=== PATIENT | female | born 1995 | race Caucasian/White ===

== ENCOUNTER 2018-03-23 12:33 | Emergency (ER) | payer OTHER ==
[2018-03-23 13:27] VITALS: BP 105/57
--- NOTE | 2018-03-23 14:17 | RAD ---
Indication: Left ankle injury. 3 views of left ankle demonstrate soft tissue swelling. There is no fracture or dislocation. No other bone or joint abnormality is identified. IMPRESSION: No fracture of the left ankle is noted.
--- NOTE | 2018-03-23 14:35 | UC ---
Lower Extremity/Ankle HPI - HPI Summary HPI Summary: Patient twisted her left ankle well tumbling with her friends a few days ago. Patient is able to ambulate without difficulty feels and hears some clicking with ambulation - History of Current Complaint Chief Complaint: UCLowerExtremity Stated Complaint: LFT ANKLE INJURY Time Seen by Provider: 03/23/18 13:52 Hx Obtained From: Patient Hx Last Menstrual Period: 02/28/18 ?: No Onset/Duration: Sudden Onset, Lasting Days Severity Initially: Mild Severity Currently: Mild Pain Intensity: 3 Pain Scale Used: 0-10 Numeric Alleviating Factor(s): Rest, Elevation, OTC Meds Able to Bear Weight: Yes - Allergies/Home Medications Allergies/Adverse Reactions: Allergies Allergy/AdvReac Type Severity Reaction Status Date / Time No Known Allergies Allergy Verified 03/23/18 13:27 Home Medications: Home Medications Ibuprofen TAB* [Motrin TAB* 400 MG] 400 mg PO ONCE PRN 03/23/18 [History Confirmed 03/23/18] PMH/Surg Hx/FS Hx/Imm Hx Previously Healthy: Yes - Surgical History Surgical History: None - Family History Known Family History: Positive: None - Social History Occupation: Student Lives: With Family Alcohol Use: Occasionally Substance Use Type: None Smoking Status (MU): Never Smoked Tobacco Review of Systems Constitutional: Negative Skin: Negative Eyes: Negative ENT: Negative Respiratory: Negative Cardiovascular: Negative Gastrointestinal: Negative Genitourinary: Negative Motor: Negative Neurovascular: Negative Musculoskeletal: Arthralgia - Lateral left ankle pain Neurological: Negative Psychological: Negative Is Patient Immunocompromised?: No All Other Systems Reviewed And Are Negative: Yes Physical Exam Triage Information Reviewed: Yes Appearance: Well-Appearing, No Pain Distress, Well-Nourished Vital Signs: Initial Vital Signs Temp 99 F 03/23/18 13:19 Pulse 90 03/23/18 13:19 Resp 20 03/23/18 13:19 BP 105/57 03/23/18 13:19 Pulse Ox 99 03/23/18 13:19 Vital Signs Reviewed: Yes Eye Exam: Normal Eyes: Positive: Conjunctiva Clear ENT Exam: Normal ENT: Positive: Normal ENT inspection, Hearing grossly normal, Pharynx normal. Negative: Trismus, Muffled voice, Hoarse voice, Sinus tenderness Dental Exam: Normal Neck exam: Normal Neck: Positive: Supple, Nontender Respiratory Exam: Normal Respiratory: Positive: Chest non-tender, No respiratory distress, No accessory muscle use Cardiovascular Exam: Normal Cardiovascular: Positive: RRR, Pulses Normal, Brisk Capillary Refill Musculoskeletal Exam: Normal Musculoskeletal: Positive: Strength Intact, ROM Intact, No Edema Neurological Exam: Normal Neurological: Positive: Alert, Muscle Tone Normal Psychological Exam: Normal Skin Exam: Normal Diagnostics - Radiology No standard instances Xray Interpretation: No Acute Changes Radiology Interpretation Completed By: ED Physician, Radiologist Lower Extremity Course/Dx - Course Course Of Treatment: Neri wrap gel splint weight-bearing as tolerated Tylenol ibuprofen for pain follow with orthopedics when necessary - Differential Dx/Diagnosis Provider Diagnoses: Left ankle sprain Discharge - Sign-Out/Discharge Documenting (check all that apply): Discharge/Admit/Transfer - Discharge Plan Condition: Stable Disposition: HOME Patient Education Materials: Ibuprofen (By mouth), Ankle Sprain (DC), Ankle Stirrup Splint (ED), R.I.C.E. Treatment (ED) Referrals: Andrea Minor MD [Medical Doctor] - 5 Days - Billing Disposition and Condition Condition: STABLE Disposition: HOME
== END 2018-03-23 14:47 | disposition home or self-care (01) ==
LOC: UCCORT 12:33
DX: S93.402A Sprain of unspecified ligament of left ankle, initial encounter (principal); X50.0XXA Overexertion from strenuous movement or load, initial encounter; Y93.89 Activity, other specified; Y92.9 Unspecified place or not applicable
CPT/HCPCS: 99202; G0463

== ENCOUNTER 2018-04-05 17:03 | Emergency (ER) | payer OTHER ==
[2018-04-05 18:18] VITALS: BP 108/67
--- NOTE | 2018-04-05 18:37 | UC ---
Throat Pain/Nasal Oc HPI - HPI Summary HPI Summary: 22 yo female with sore throat and swollen glands x 4-5 days denies fever 3 weeks ago ill for 1 1/2 weeks with similar symptoms strep and mono neg - History of Current Complaint Chief Complaint: UCRespiratory Stated Complaint: SORE THROAT, RESPIRATORY Time Seen by Provider: 04/05/18 18:16 Hx Obtained From: Patient Hx Last Menstrual Period: 2 wks Onset/Duration: Sudden Onset Severity: Moderate Pain Intensity: 6 Pain Scale Used: 0-10 Numeric - Allergies/Home Medications Allergies/Adverse Reactions: Allergies Allergy/AdvReac Type Severity Reaction Status Date / Time No Known Allergies Allergy Verified 04/05/18 18:18 Home Medications: Home Medications Multivitamin [Multivitamins] 1 each PO DAILY 04/05/18 [History Confirmed ] PMH/Surg Hx/FS Hx/Imm Hx Previously Healthy: Yes - Surgical History Surgical History: None - Family History Known Family History: Positive: None, Hypertension - Social History Alcohol Use: Occasionally Substance Use Type: None Smoking Status (MU): Never Smoked Tobacco Review of Systems Constitutional: Fatigue Skin: Negative Eyes: Negative ENT: Sore Throat Respiratory: Negative Cardiovascular: Negative Gastrointestinal: Negative Genitourinary: Negative Motor: Negative Neurovascular: Negative Musculoskeletal: Negative Neurological: Negative Psychological: Negative Is Patient Immunocompromised?: No All Other Systems Reviewed And Are Negative: Yes Physical Exam Triage Information Reviewed: Yes Appearance: Well-Appearing, No Pain Distress, Well-Nourished Vital Signs: Initial Vital Signs Temp 101.2 F 04/05/18 18:12 Pulse 97 04/05/18 18:12 Resp 18 04/05/18 18:12 BP 108/67 04/05/18 18:12 Pulse Ox 100 04/05/18 18:12 Vital Signs Reviewed: Yes Eyes: Positive: Conjunctiva Clear ENT: Positive: Pharyngeal erythema, Tonsillar swelling, Tonsillar exudate Neck: Positive: Supple, Nontender, Enlarged Nodes @ - ant and post cervical Respiratory: Positive: Lungs clear, Normal breath sounds, No respiratory distress, No accessory muscle use Cardiovascular: Positive: RRR, No Murmur Abdomen Description: Positive: Nontender, No Organomegaly, Soft. Negative: CVA Tenderness (R), CVA Tenderness (L) Bowel Sounds: Positive: Present Musculoskeletal: Positive: ROM Intact, No Edema Neurological: Positive: Alert Psychological Exam: Normal Skin Exam: Normal Diagnostics - Laboratory Diagnostic Studies Completed/Ordered: strep (-) Throat Pain/Nasal Course/Dx - Differential Dx/Diagnosis Provider Diagnoses: exudative tonsillitis. suspect mono Discharge - Sign-Out/Discharge Documenting (check all that apply): Discharge/Admit/Transfer - Discharge Plan Condition: Stable Disposition: HOME Patient Education Materials: Mononucleosis (ED) Referrals: Non Staff,Doctor [Primary Care Provider] - Additional Instructions: rest fluids tylenol or advil I suspect mono blood work is pending - Billing Disposition and Condition Condition: STABLE Disposition: HOME
[2018-04-06 11:04] LABS: Hematocrit 35 % (35-47); Mean Corpuscular HGB Conc 34 g/dl (31-36); Mean Corpuscular Hemoglobin 31 pg (27-31); Mean Corpuscular Volume 92 fL (80-97); Mean Platelet Volume 7.7 um3 (7.4-10.4); Platelet Count 286 10^3/ul (150-450); Red Blood Count 3.83 10^6/ul (4.0-5.4); Red Cell Distribution Width 13 % (10.5-15); White Blood Count 9.8 10^3/ul (3.5-10.8)
[2018-04-06 12:14] LABS: ABS Basophils 0.1 10^3/ul (0-0.2); ABS Eosinophils 0 10^3/ul (0-0.6); ABS Lymphocytes 5.3 10^3/ul (1.0-4.8); ABS Monocytes 1.2 10^3/ul (0-0.8); ABS Neutrophils 3.1 10^3/ul (1.5-7.7); ABS Nucleated RBC 0 10^3/ul; Nucleated Red Blood Cells % 0.2
[2018-04-06 12:18] LABS: Monocytes % 2 % (0-7)
--- NOTE | 2018-04-07 07:00 | UC ---
- Progress Note Progress Note: please notify patient her monospot was negative her WBC differential of 16% atypical lymphs points to a diagnosis of MONO She should consider herself as having mono and follow instructions in her D/C packet Discharge - Sign-Out/Discharge Documenting (check all that apply): Post-Discharge Follow Up - Discharge Plan Condition: Stable Disposition: HOME Patient Education Materials: Mononucleosis (ED) Referrals: Non Staff,Doctor [Primary Care Provider] - Additional Instructions: rest fluids tylenol or advil I suspect mono blood work is pending - Billing Disposition and Condition Condition: STABLE Disposition: HOME
== END 2018-04-05 19:17 | disposition home or self-care (01) ==
LOC: UCCORT 17:03
DX: J03.90 Acute tonsillitis, unspecified (principal)
CPT/HCPCS: 36415; 85025; 85060; 86308; 87651; 99211; G0463

== ENCOUNTER 2018-08-18 11:22 | Emergency (ER) | payer OTHER ==
[2018-08-18 12:34] VITALS: BP 101/62
--- NOTE | 2018-08-18 13:30 | UC ---
Throat Pain/Nasal Oc HPI - HPI Summary HPI Summary: 3 weeks cough and congestion, x 5 days tactile temp, green phlegm and fatigue. No n/v. Using dayqui/nyquil with little relief. No rash. No ad pain no n/v Decreased appetitis Pt medications reviewed this visit - History of Current Complaint Chief Complaint: UCRespiratory Stated Complaint: RUNNY NOSE,COUGH Time Seen by Provider: 08/18/18 13:29 Hx Obtained From: Patient Hx Last Menstrual Period: 08/08/18 ?: No Onset/Duration: Gradual Onset Pain Intensity: 0 - Allergies/Home Medications Allergies/Adverse Reactions: Allergies Allergy/AdvReac Type Severity Reaction Status Date / Time No Known Allergies Allergy Verified 08/18/18 12:29 Home Medications: Home Medications Bcp 1 tab DAILY 08/18/18 [History Confirmed 08/18/18] PMH/Surg Hx/FS Hx/Imm Hx Previously Healthy: Yes - Surgical History Surgical History: None - Family History Known Family History: Positive: Hypertension - Social History Occupation: Student Lives: Dormitory/Roommates Alcohol Use: Occasionally Substance Use Type: None Smoking Status (MU): Never Smoked Tobacco - Immunization History Most Recent Tetanus Shot: UTD Review of Systems Constitutional: Fatigue ENT: Nasal Discharge, Sinus Congestion Respiratory: Cough All Other Systems Reviewed And Are Negative: Yes Physical Exam - Summary Physical Exam Summary: Vital Signs Reviewed: Yes A+Ox3, no distress Eyes: Conjunctiva Clear, MARIA C. EOM intact and full ENT: Hearing grossly normal TM x 2 clear, mmoist, uvula midline, no exudate, no erythema Neck: Positive: Supple Respiratory: scattered wheeze, intermittent cough + BS throughout no incresed WOB, speaking full sentences Cardiovascular: RRR nl s1, s2 no m/r CBT <2 sec abd soft + BS nt/nd no guarding, no distension Musculoskeletal Exam: HOFFMAN x 4 without difficulty Strength Intact, ROM Intact Neurological: Positive: Alert, + sensation throughout Psychological: Positive: Normal Response To Family Skin: Positive: no rash, no ecchymosis Triage Information Reviewed: Yes Vital Signs: Initial Vital Signs Temp 98 F 08/18/18 12:30 Pulse 80 08/18/18 12:30 Resp 16 08/18/18 12:30 BP 101/62 08/18/18 12:30 Pulse Ox 100 08/18/18 12:30 Throat Pain/Nasal Course/Dx - Course Course Of Treatment: Pt with cough and congestion with progressive green phlegm x 3 weeks. on exam, diffuse, scattered wheeze. will treat with abx. decongestant. humidify air. secretion precaution. return precaution - Differential Dx/Diagnosis Provider Diagnoses: acute bronchitis Discharge - Sign-Out/Discharge Documenting (check all that apply): Patient Departure All imaging exams completed and their final reports reviewed: No Studies - Discharge Plan Condition: Stable Disposition: HOME Prescriptions: Azithromycin TAB* [Zithromax TAB (Z-KAREY) 250 mg #6 tabs] 2 tab PO .TODAY, THEN 1 DAILY #1 karey predniSONE [Prednisone 20 MG TAB] 40 mg PO DAILY #10 tablet Patient Education Materials: Acute Bronchitis (ED) Referrals: No Primary Care Phys,NOPCP [Primary Care Provider] - Additional Instructions: - Take antibiotics exactly as prescribed until gone - Take prednisone as prescribed until gone -Stay well hydrated - avoid excess caffeine and all alcohol - eat regular, healthy meals - These infections are spread by oral secretions. Do not share eating or drinking utensils. Frequent hand washing is important. Clean items that may get your secretions on them such as cell phones, ipads, computer mouse, television remotes. Once you have been on antbiotics for 2 days, change your pillowcase and your toothbrush -Okay to take over the counter medications for cough and congestion -Contact the [facility] system, return here or go to the emergency department with any questions or concerns - Billing Disposition and Condition Condition: STABLE Disposition: Home
== END 2018-08-18 14:01 | disposition home or self-care (01) ==
LOC: UCCORT 11:22
DX: J20.9 Acute bronchitis, unspecified (principal)
CPT/HCPCS: 99212; G0463

== ENCOUNTER 2018-08-31 11:45 | Emergency (ER) | payer OTHER ==
[2018-08-31 13:28] VITALS: BP 109/57
--- NOTE | 2018-08-31 15:02 | RAD ---
Indication: RIGHT foot pain at the level of the fourth and fifth metatarsals following injury. Comparison: No relevant prior exams available on the [facility] for comparison. Technique: AP, lateral, and oblique views RIGHT foot. Report: Negative for fracture or malalignment. Preserved joint spaces. Normal variant bipartite medial sesamoid at the first metatarsal phalangeal joint. Small accessory ossicle adjacent to the lateral malleolus without concern. Unremarkable soft tissue contours. IMPRESSION: #. Negative for fracture.
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
== END 2018-08-31 15:14 | disposition home or self-care (01) ==
LOC: UCCORT 11:45
DX: S90.31XA Contusion of right foot, initial encounter (principal); W50.0XXA Accidental hit or strike by another person, initial encounter; Y92.89 Other specified places as the place of occurrence of the external cause
CPT/HCPCS: 99211; G0463

== ENCOUNTER 2019-01-11 12:16 | Emergency (ER) | payer OTHER ==
--- NOTE | 2019-01-11 13:49 | UC ---
FLU HPI - HPI Summary HPI Summary: 23 yo female presents with sore throat and headache for 1 week. She tells me that she gets swollen tonsils a lot and has seen ENT in the past. Recently developed a sore throat about a week ago and her tonsils have been enlarged since with worsening pain during swallowing. Has been taking ibuprofen with mild relief. Denies fever, chills, sinus symptoms, cough, rash, nausea. IS eating and drinking well. - History of Current Complaint Stated Complaint: SORE THROAT,CHILLS,HEADACHE Hx Obtained From: Patient Hx Last Menstrual Period: 08/05/18 Onset/Duration: Gradual Onset Severity Currently: Mild Severity Initially: Moderate Pain Intensity: 5 Pain Scale Used: 0-10 Numeric - Allergy/Home Medications Allergies/Adverse Reactions: Allergies Allergy/AdvReac Type Severity Reaction Status Date / Time No Known Allergies Allergy Verified 08/31/18 13:24 Home Medications: Home Medications Ibuprofen 400 mg PO ONCE 01/11/19 [History Confirmed 01/11/19] Norgestimate-Ethinyl Estradiol [Ortho-Cyclen 28 Tablet] 1 each PO DAILY [History Confirmed 01/11/19] PMH/Surg Hx/FS Hx/Imm Hx - Additional Past Medical History Additional PMH: None - Surgical History Surgical History: None - Family History Known Family History: Positive: Hypertension - Social History Occupation: Student Lives: Dormitory/Roommates Alcohol Use: Occasionally Substance Use Type: None Smoking Status (MU): Never Smoked Tobacco Have You Smoked in the Last Year: No - Immunization History Most Recent Tetanus Shot: UTD Vaccination Up to Date: Yes Review of Systems All Other Systems Reviewed And Are Negative: Yes Constitutional: Positive: Negative Skin: Positive: Negative Eyes: Positive: Negative ENT: Positive: Sore Throat Respiratory: Positive: Negative Cardiovascular: Positive: Negative Gastrointestinal: Positive: Negative Neurovascular: Positive: Negative Neurological: Positive: Negative Psychological: Positive: Negative Physical Exam - Summary Physical Exam Summary: GENERAL: NAD. WDWN. No pain distress. SKIN: No rashes, sores, lesions, or open wounds. HEENT: Head: AT/NC Eyes: Conjunctiva clear without inflammation or discharge. Ears: Hearing grossly normal. TMs intact, no bulging, erythema, or edema. Nose: Nasal mucosa pink and moist. NTTP maxillary and frontal sinus. Throat: Posterior oropharynx mild erythema and 3+ tonsillar enlargement. No exudates. Uvula midline. No hoarse voice or muffled voice. NECK: Supple. Nontender. No lymphadenopathy. CHEST: CTAB. No r/r/w. No accessory muscle use. Breathing comfortably and in no distress. CV: RRR. Without m/r/g. Pulses intact. Cap refill <2seconds NEURO: Alert. PSYCH: Age appropriate behavior. Triage Information Reviewed: Yes Vital Signs: Vital Signs: Temp Pulse Resp BP Pulse Ox 97.8 F 92 14 102/55 99 01/11/19 13:58 01/11/19 13:58 01/11/19 13:58 01/11/19 13:58 01/11/19 13:58 Laboratory Tests 01/11/19 14:02 Group A Strep Rapid Negative Vital Signs Reviewed: Yes Flu Course/Dx - Course Course Of Treatment: Suspect tonsillitis. Rx for prednisone. - Differential Dx/Diagnosis Provider Diagnosis: Tonsillitis Discharge - Sign-Out/Discharge Documenting (check all that apply): Patient Departure All imaging exams completed and their final reports reviewed: No Studies - Discharge Plan Condition: Stable Disposition: HOME Prescriptions: predniSONE TAB* [Deltasone 20 MG TAB*] 40 mg PO DAILY #10 tab Patient Education Materials: Tonsillitis (ED) Referrals: No Primary Care Phys,NOPCP [Primary Care Provider] - Additional Instructions: If you develop a fever, shortness of breath, chest pain, new or worsening symptoms - please call your PCP or go to the ED. - Billing Disposition and Condition Condition: STABLE Disposition: Home
[2019-01-11 14:01] VITALS: BP 102/55
== END 2019-01-11 14:18 | disposition home or self-care (01) ==
LOC: UCCORT 12:16
DX: J03.90 Acute tonsillitis, unspecified (principal)
CPT/HCPCS: 87651; 99212; G0463